=== PATIENT | female | born 2000 | race Asian ===

== ENCOUNTER 2022-04-16 13:47 | Emergency (ER) | payer OTHER ==
[~2022-04-16] VITALS: Ht 162.6 cm; Wt 59.0 kg
[2022-04-16 13:52] VITALS: BP_SYST 120
--- NOTE | 2022-04-16 16:50 | NUR ---
RECEIVED PT AND ASSUMED CARE. PT BEING SEEN FOR N/V X 2DAYS, STATES NO TEMPERATURE. PT IS AAOX4. WITH C/O H/A AND DIZZINESS, DEHYDRATION, CONSTIPATION. RESP E/U. ON R/A. ABDOMEN SOFT, NONTENDER, NONDISTENDED. BOWEL SOUNDS ACTIVE X4. DISTAL PULSES NORMAL, SKIN WARM, CAP REFILL <3 SECS. NO EDEMA. SKIN INTACT. AMBULATORY. SIDERAILS UP X 2.
--- NOTE | 2022-04-16 17:08 | NUR ---
COVID SAMPLE OBTAINED.
--- NOTE | 2022-04-16 18:40 | NUR ---
Ira dsouza in [facility] - 04/17/22 at 0012 by [id number] PT BROUGHT FROM LOBBY AND PLACED IN ER BED 2
--- NOTE | 2022-04-16 18:42 | NUR ---
PT BROUGHT FROM LOBBY TO ER BED 2.
--- NOTE | 2022-04-16 19:00 | NUR ---
DR. JOHANSEN AT BEDSIDE TO ASSESS PT .
--- NOTE | 2022-04-16 19:25 | NUR ---
PT ENDORSED TO BRIE YEPEZ. ALL QUESTIONS AND CONCERNS ADDRESSED.
[2022-04-16] MEDS ORDERED: PROCHLORPERAZINE EDISYLATE 10 MG/2 ML VIAL IM ONE (20:00)
[2022-04-16] MEDS ORDERED: ONDANSETRON 4 MG ODT TAB PO ONE (20:00)
[2022-04-16] MEDS ORDERED: NACL 0.9% 1,000 ML IV ONE (20:45)
[2022-04-16 22:38] VITALS: BP_SYST 111
--- NOTE | 2022-04-16 22:42 | NUR ---
Patient given written and verbal discharge instructions and verbalizes understanding. ER MD , DR JOHANSEN discussed with patient the results and treatment provided. Patient in stable condition. ID arm band removed. IV catheter removed intact and dressing applied, no active bleeding. NO RX GIVEN. Patient educated on pain management and to follow up with PMD. Pain Scale . Opportunity for questions provided and answered. Medication side effect fact sheet provided.
== END 2022-04-16 22:42 | disposition home or self-care (01) ==
LOC: SED 13:47
DX: R11.2 Nausea with vomiting, unspecified (principal); R04.2 Hemoptysis; F12.20 Cannabis dependence, uncomplicated; Z20.822 Contact with and (suspected) exposure to COVID-19
CPT/HCPCS: 99284; 96374; 71045; 87426; 36415; 81002; 81025; Q0162; J0780